=== PATIENT | female | born 1935 | race Caucasian/White ===

== ENCOUNTER 2017-08-24 15:46 | Emergency (ER) | payer MEDICARE, BC ==
[~2017-08-24] VITALS: Ht 165.1 cm; Wt 81.8 kg
[~2017-08-24 15:46] MED LIST: ALEVE 220MG220 MG PO; ASPI325T6 PO; ASPIRIN E.C. 8181 MG PO; BENADRYL25 M1 PO; BENADRYL25 M2 PO; CORICCLDFLU; EPA FISH OIL1000 MG PO; ESTRACE0.1 MG/GM VG; FOLIC ACID 40400 MCG PO; HYDROCHLOR50 MG PO; IRON325 M1 PO; KLOR-CON 1010 MEQ PO; LISINOPRIL40 MG PO; MOTRIN 200200 MG/TAB PO; NORCO 325 MG-7.1 TAB PO; NORVASC 5MG5 MG/TAB PO; OSTEO-BI-FLEX 21 TAB; ROXICODONE 55 MG/TAB PO; SYNTHROID 0.10.15 MG PO; ULTRAM100 MG PO; VITAMIN C500 MG PO; VOLTAREN GEL 1%1 TU TP
[2017-08-24 16:19] LABS: PH 7 (5-8); SQUAMOUS EPITHELIAL 0-2 /hpf; URINE APPEARANCE Clear; URINE BACTERIA None Seen /hpf; URINE BILIRUBIN Negative (NEGATIVE); URINE BLOOD Negative (NEGATIVE); URINE COLOR Straw; URINE GLUCOSE Negative (NEGATIVE); URINE KETONE Negative (NEGATIVE); URINE LEUKOCYTE ESTERASE Negative (NEGATIVE); URINE NITRATE Negative (NEGATIVE); URINE PROTEIN(semi-quant) Negative (NEGATIVE); URINE RBC None Seen /hpf; URINE UROBILINOGEN Negative (NEGATIVE); URINE WBC None Seen /hpf
[2017-08-24 16:29] LABS: COLLECTION METHOD CLEAN CATCH
[2017-08-24 16:49] LABS: BASO % 0.2 % (0.0-2.0); EOS % 0.1 % (0-4.0); GRAN % 82.7 % (42.2-75.2); HEMATOCRIT 45.4 % (37.0-47.0); LYMPH # 1.4 (1.2-3.4); LYMPH % 11.9 % (20.0-51.0); MEAN CELL VOLUME 92 fl (80.0-100.0); MEAN CORPUSCULAR HEMOGLOBIN 32 pg (27.0-31.0); MEAN CORPUSCULAR HGB CONC 35 g/dl (33.0-37.0); MEAN PLATELET VOLUME 11.2 fl (7.4-10.4); MONO # 0.5 (0.1-0.6); PLATELET COUNT 276 K/mm3 (130-400); RED BLOOD COUNT 4.94 M/mm3 (4.10-5.30); REDCELL DISTRIBUTION WIDTH-CV 13.2 % (11.5-14.5)
[2017-08-24 17:06] LABS: ANION GAP 11 mmol/L (7-16); BLOOD UREA NITROGEN 28 mg/dL (7-17); CALCIUM 10.4 mg/dL (8.4-10.2); CARBON DIOXIDE 25 mmol/L (22-30); CHLORIDE 100 mmol/L (98-107); CREATININE, serum 1.09 mg/dL (0.52-1.25); GLUCOSE 117 mg/dL (74-106); POTASSIUM 3.6 mmol/L (3.4-5.0); SODIUM 136 mmol/L (137-145)
[2017-08-24] MEDS ORDERED: ASPIRIN 81M81 MG/TA2 PO (17:08)
[2017-08-24] MEDS ORDERED: OSTEO-BI-FLEX 21 TAB PO (17:10)
[2017-08-24] MEDS ORDERED: COZAAR100 MG PO (17:11)
[2017-08-24] MEDS ORDERED: TYLENOL 325MG325 MG PO (17:12)
[2017-08-24] MEDS ORDERED: AMOXICILLIN 8751 TAB PO (17:13)
[2017-08-24] MEDS ORDERED: PREDNISONE20 MG PO (17:13)
[2017-08-24 17:34] LABS: TROPONIN-I < 0.012 ng/mL (0.000-0.034)
[2017-08-24] MEDS ORDERED: TESSALON P100 MG/CAP PO (17:57)
[2017-08-24 17:58] VITALS: BP 149/82; PULSE 80; TEMP 98.2
== END 2017-08-24 18:14 | disposition home or self-care (01) ==
LOC: COL.ER 15:46
PROVIDERS: Emergency Medicine
DX: B34.9 Viral infection, unspecified (principal); I10 Essential (primary) hypertension; R53.81 Other malaise; Z79.82 Long term (current) use of aspirin
CPT/HCPCS: J7040

== ENCOUNTER 2018-08-24 16:19 | Observation (INO) | payer MEDICARE, BC ==
[~2018-08-24] VITALS: Ht 154.9 cm; Wt 87.5 kg
[~2018-08-24 16:19] MED LIST changes: +AMOXICILLIN 8751 TAB PO; +ASPIRIN 81M81 MG/TA2 PO; +COZAAR100 MG PO; +OSTEO-BI-FLEX 21 TAB PO; +PREDNISONE20 MG PO; +TESSALON P100 MG/CAP PO; +TYLENOL 325MG325 MG PO
[2018-08-24] MEDS ORDERED: KLOR-CON 1010 MEQ PO (17:37)
[2018-08-24] MEDS ORDERED: MULTI VITAMINS1 TAB PO (17:39)
[2018-08-24] MEDS ORDERED: ARICEPT10 MG PO (17:41)
[2018-08-24] MEDS ORDERED: NAMENDA5 MG PO (17:41)
[2018-08-24 17:51] LABS: BASO % 0.4 % (0.0-2.0); EOS # 0.1 (0.0-0.7); GRAN # 8.1 (1.4-6.5); GRAN % 75.5 % (42.2-75.2); HEMATOCRIT 41.9 % (37.0-47.0); HEMOGLOBIN 14.8 g/dl (12.5-16.0); LYMPH # 1.8 (1.2-3.4); LYMPH % 16.5 % (20.0-51.0); MEAN CELL VOLUME 91 fl (80.0-100.0); MEAN CORPUSCULAR HEMOGLOBIN 32 pg (27.0-31.0); MEAN CORPUSCULAR HGB CONC 35 g/dl (33.0-37.0); MEAN PLATELET VOLUME 10.3 fl (7.4-10.4); MONO # 0.6 (0.1-0.6); MONO % 5.5 % (1.7-9.3); PLATELET COUNT 294 K/mm3 (130-400); RED BLOOD COUNT 4.63 M/mm3 (4.10-5.30); REDCELL DISTRIBUTION WIDTH-CV 12.7 % (11.5-14.5)
[2018-08-24 18:02] LABS: COLLECTION METHOD CLEAN CATCH
[2018-08-24 18:04] LABS: BILIRUBIN,TOTAL 0.4 mg/dL (0.0-1.0); CALCIUM 9.7 mg/dL (8.4-10.2); CREATININE, serum 1.01 mg/dL (0.52-1.25); TOTAL PROTEIN 7.2 gm/dL (6.4-8.2)
[2018-08-24 18:19] LABS: PH 6 (5-8); SQUAMOUS EPITHELIAL 0-2 /hpf; URINE APPEARANCE Clear; URINE BACTERIA Occasional /hpf; URINE BILIRUBIN Negative (NEGATIVE); URINE BLOOD Negative (NEGATIVE); URINE COLOR Yellow; URINE GLUCOSE Negative (NEGATIVE); URINE KETONE Negative (NEGATIVE); URINE LEUKOCYTE ESTERASE Trace (NEGATIVE); URINE NITRATE Negative (NEGATIVE); URINE PROTEIN(semi-quant) Negative (NEGATIVE); URINE RBC 0-2 /hpf; URINE UROBILINOGEN Negative (NEGATIVE)
[2018-08-24] MEDS ORDERED: LEVOXYL0.1 MG PO (18:27)
[2018-08-24] MEDS ORDERED: NORVASC 10MG10 MG PO (18:29)
--- NOTE | 2018-08-24 19:20 | NUR ---
Patient up from ER by marcos. Family at bedside. Assessment complete. Pedal pulses intact. Cap refill <3. Patient able to move BLE on bed. States mild pain at this time. Given medicaitons per orders. Denies further needs at this time.
[2018-08-24 20:15] VITALS: BP 130/101; PULSE 68; TEMP 98.8
[2018-08-24 23:36] VITALS: BP 113/53; PULSE 60; TEMP 98
[2018-08-25 04:12] VITALS: BP 143/65; PULSE 80; TEMP 97.7
--- NOTE | 2018-08-25 06:31 | NUR ---
Patient has rested well through the night. Spouse remains at bedside. Lund maintained to dependent drainage with clear yellow urine present. Pedal pulses intact. Cap refill <3. States pain to left pelvic area this morning. Given medications per orders. Denies further needs at this time. Will report off to day shift.
[2018-08-25 06:54] LABS: BASO % 0.3 % (0.0-2.0); EOS # 0.1 (0.0-0.7); EOS % 0.4 % (0-4.0); GRAN # 9.7 (1.4-6.5); GRAN % 78.7 % (42.2-75.2); HEMATOCRIT 39.8 % (37.0-47.0); HEMOGLOBIN 13.7 g/dl (12.5-16.0); LYMPH # 1.8 (1.2-3.4); LYMPH % 14.2 % (20.0-51.0); MEAN CELL VOLUME 93 fl (80.0-100.0); MEAN CORPUSCULAR HEMOGLOBIN 32 pg (27.0-31.0); MEAN CORPUSCULAR HGB CONC 34 g/dl (33.0-37.0); MEAN PLATELET VOLUME 11.1 fl (7.4-10.4); MONO # 0.7 (0.1-0.6); MONO % 5.8 % (1.7-9.3); PLATELET COUNT 297 K/mm3 (130-400)
[2018-08-25 07:09] LABS: CALCIUM 9.4 mg/dL (8.4-10.2); CREATININE, serum 1.09 mg/dL (0.52-1.25); MAGNESIUM 1.9 mg/dL (1.6-2.3); POTASSIUM 3.9 mmol/L (3.4-5.0)
[2018-08-25 07:50] VITALS: BP 141/39; PULSE 64; TEMP 97.6
--- NOTE | 2018-08-25 08:00 | NUR ---
PATIENT IS ALERT AND CONFUSED. PATIENT HAS A HX OF DEMENTIA AND IS ORIENTED TO PERSON. AT BEDSIDE. PATIENT ONLY C/O PAIN WITH ACTIVITY. PRESCHOOL SPECIAL EDUCATION TEACHER GAVE PAIN PILL BEFORE SHIFT CHANGE. MOTA TO DEPENDENT DRAINAGE. PATIENT SITTING UP IN BED AND DENIES WANTING BREAKFAST AT THIS TIME. NO C/O N/V. AM MEDS GIVEN. PATIENT REPOSITIONED TO COMFORT AND NOW RESTING. BED ALARM ON. CALL LIGHT IN REACH.
--- NOTE | 2018-08-25 09:13 | NUR ---
YVETTE and SW student met with the patient and patient's , Cristobal, to discuss discharge plan. The patient lives in [place] with her . The patient reports the patient was independent with ADLs prior to hospitalization and that she has canes, walkers, and a CPAP from [facility]. The patient's PCP is Dr. Deanne Shukla and she receives her medications at the [facility]. The patient's reports no difficulties obtaining her meds. The patient's advanced directives are in EMR. PT/OT have been ordered. SW to continue to follow.
--- NOTE | 2018-08-25 10:45 | NUR ---
MOTA DC'D PER ORDERS. NOTED 375CC OF CLEAR YELLOW URINE NOTED. PATIENT TOLERATED WELL.
[2018-08-25 11:53] VITALS: BP 130/68; PULSE 74; TEMP 97.5
--- NOTE | 2018-08-25 14:53 | NUR ---
YVETTE and SW student met with the patient, patient's , and the patient's daughter to review therapies recommendation of post-acute rehab. SW discussed the options of [facility] vs [facility] vs private pay for SNF/[facility]. The patient's and daughter preferred [facility]. The patient's daughter reports that if [facility] is unable to accept, then they would prefer for the patient to come home with home health. She reports that along with the patient's , they would have 1-2 family members in the home, helping the patient. YVETTE consulted [facility] Director, Ellyn. SW awaiting their screening and will continue to follow.
[2018-08-25 15:48] VITALS: BP 140/52; PULSE 65; TEMP 97.4
[2018-08-25 20:05] VITALS: BP 152/64; PULSE 73; TEMP 98
--- NOTE | 2018-08-25 20:45 | NUR ---
Patient up in chair. Alert and confused. Spouse at bedside. Pedal pulses present, cap refill <3. Patient up to restroom with stand by assist and walker. States mild pain to lle, tylenol given per orders. Denies further needs at this time.
[2018-08-26 04:20] VITALS: BP 137/54; PULSE 67; TEMP 98.5
--- NOTE | 2018-08-26 06:06 | NUR ---
Patient has rested well through the night. Minimal needs. Home CPAP on through the night. Up to restroom this AM. Stand by assist with walker. Steady gait. States pain 5/10 to lle after ambulating to restroom. Given pain medications per orders. Denies further needs at this time. Will report off to day shift.
[2018-08-26 06:07] LABS: BASO % 0.4 % (0.0-2.0); EOS # 0.2 (0.0-0.7); GRAN # 6.2 (1.4-6.5); GRAN % 72.8 % (42.2-75.2); HEMATOCRIT 39.5 % (37.0-47.0); HEMOGLOBIN 13.5 g/dl (12.5-16.0); LYMPH # 1.5 (1.2-3.4); LYMPH % 17.7 % (20.0-51.0); MEAN CELL VOLUME 93 fl (80.0-100.0); MEAN CORPUSCULAR HEMOGLOBIN 32 pg (27.0-31.0); MEAN CORPUSCULAR HGB CONC 34 g/dl (33.0-37.0); MEAN PLATELET VOLUME 10.4 fl (7.4-10.4); MONO # 0.6 (0.1-0.6); MONO % 6.5 % (1.7-9.3); PLATELET COUNT 273 K/mm3 (130-400); RED BLOOD COUNT 4.24 M/mm3 (4.10-5.30); REDCELL DISTRIBUTION WIDTH-CV 13.1 % (11.5-14.5)
[2018-08-26 06:20] LABS: CALCIUM 9.3 mg/dL (8.4-10.2); CREATININE, serum 1.06 mg/dL (0.52-1.25); POTASSIUM 3.7 mmol/L (3.4-5.0)
[2018-08-26 07:25] VITALS: BP 144/48; PULSE 68; TEMP 98.2
--- NOTE | 2018-08-26 09:49 | NUR ---
Initial visit; Patient thanked Shipwright Apprentice for looking in on her this morning and offering God's blessings and hopes of a good recovery.
--- NOTE | 2018-08-26 10:42 | NUR ---
The patient's family have decided to pursue home health for the patient. YVETTE and YVETTE norman met with the patient's and daughter and provided them with Medicare.gov's list of home health agencies that serve [place]. The patient's daughter chose [facility]. YVETTE contacted and faxed a referral to Tammy at [facility]. Tammy reports that they can accept the patient for services. YVETTE informed the patient's daughter and . YVETTE to continue to follow.
[2018-08-26] MEDS ORDERED: ULTRAM 50MG TAB50 MG PO (10:55)
[2018-08-26] MEDS ORDERED: TYLENOL 500MG500 MG PO (10:56)
[2018-08-26] MEDS ORDERED: OMNICEF 300MG300 MG PO (11:04)
[2018-08-26] MEDS ORDERED: CALCIUM CARBON650 M2 PO (11:08)
--- NOTE | 2018-08-26 11:25 | NUR ---
The patient is to discharge back home with her and family support today, 08/26, with home health services for care home/PT/OT through [facility]. No additional needs at this time.
[2018-08-26 11:50] VITALS: BP 148/93; PULSE 72; TEMP 98.2
== END 2018-08-26 14:00 | disposition home or self-care (01) ==
LOC: COL.ER 16:19 → SURG 17:53
PROVIDERS: Emergency Medicine; Nurse Practitioner Family; Physician Assistant; ADMIT Hospitalist
DX: S32.592A Other specified fracture of left pubis, initial encounter for closed fracture (principal); I10 Essential (primary) hypertension; F03.90 Unspecified dementia, unspecified severity, without behavioral disturbance, psychotic disturbance, mood disturbance, and anxiety; E03.9 Hypothyroidism, unspecified; G47.30 Sleep apnea, unspecified; W17.89XA Other fall from one level to another, initial encounter; Y93.29 Activity, other involving ice and snow; E87.6 Hypokalemia; E83.42 Hypomagnesemia; Z90.49 Acquired absence of other specified parts of digestive tract; Z96.653 Presence of artificial knee joint, bilateral; Z79.82 Long term (current) use of aspirin; Z87.440 Personal history of urinary (tract) infections
CPT/HCPCS: A4216; G0378; J0696; J1650; J2270; J2405; J3475

== ENCOUNTER → 2019-09-09 | Outpatient (CLI) | payer MEDICARE, BC ==
[~2019-09-09] MED LIST changes: +ARICEPT10 MG PO; +CALCIUM CARBON650 M2 PO; +LEVOXYL0.1 MG PO; +MULTI VITAMINS1 TAB PO; +NAMENDA5 MG PO; +NORVASC 10MG10 MG PO; +OMNICEF 300MG300 MG PO; +TYLENOL 500MG500 MG PO; +ULTRAM 50MG TAB50 MG PO
== END ==
LOC: COL.RAD 13:09
DX: R93.89 Abnormal findings on diagnostic imaging of other specified body structures (principal)

== ENCOUNTER → 2019-10-15 | Outpatient (CLI) | payer MEDICARE, BC | LOC: COL.RAD 09:51 | DX: C54.1 Malignant neoplasm of endometrium (principal); K44.9 Diaphragmatic hernia without obstruction or gangrene; M47.815 Spondylosis without myelopathy or radiculopathy, thoracolumbar region; R91.8 Other nonspecific abnormal finding of lung field | CPT/HCPCS: Q9967 ==

== ENCOUNTER 2020-01-22 15:12 | Emergency (ER) | payer MEDICARE, BC ==
[~2020-01-22] VITALS: Ht 149.9 cm; Wt 77.7 kg
[2020-01-22 15:18] VITALS: TEMP 97.9
[2020-01-22 17:02] LABS: BASO % 0.5 % (0.0-2.0); EOS # 0.2 (0.0-0.7); EOS % 3.5 % (0-4.0); GRAN # 4.8 (1.4-6.5); GRAN % 80.1 % (42.2-75.2); HEMATOCRIT 42.1 % (37.0-47.0); HEMOGLOBIN 14.5 g/dl (12.5-16.0); LYMPH # 0.5 (1.2-3.4); LYMPH % 8.7 % (20.0-51.0); MEAN CELL VOLUME 90 fl (80.0-100.0); MEAN CORPUSCULAR HEMOGLOBIN 31 pg (27.0-31.0); MEAN CORPUSCULAR HGB CONC 34 g/dl (33.0-37.0); MEAN PLATELET VOLUME 11.4 fl (7.4-10.4); MONO # 0.4 (0.1-0.6); MONO % 6.7 % (1.7-9.3); PLATELET COUNT 166 K/mm3 (130-400); RED BLOOD COUNT 4.68 M/mm3 (4.10-5.30)
[2020-01-22 17:41] LABS: ALBUMIN 3.9 gm/dL (3.5-5.0); BILIRUBIN,TOTAL 0.6 mg/dL (0.0-1.0); C-REACTIVE PROTEIN 3.6 mg/dL (0.0-0.9); CALCIUM 9.2 mg/dL (8.4-10.2); CREATININE, serum 1.13 (0.52-1.25); POTASSIUM 3.7 mmol/L (3.4-5.0); TOTAL PROTEIN 7.2 gm/dL (6.4-8.2)
[2020-01-22] MEDS ORDERED: NAMENDA 10MG TA10 MG PO (17:55)
[2020-01-22] MEDS ORDERED: PREDNISONE20 MG PO (18:37)
[2020-01-22 18:39] VITALS: BP 113/77; PULSE 93
== END 2020-01-22 18:45 | disposition home or self-care (01) ==
LOC: COL.ER 15:12
PROVIDERS: Emergency Medicine
DX: T78.40XA Allergy, unspecified, initial encounter (principal); I10 Essential (primary) hypertension; F03.90 Unspecified dementia, unspecified severity, without behavioral disturbance, psychotic disturbance, mood disturbance, and anxiety; Z85.118 Personal history of other malignant neoplasm of bronchus and lung
CPT/HCPCS: J7030; J7512